=== PATIENT | female | born 2000 | race Caucasian/White ===

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

== ENCOUNTER 2022-08-17 21:35 | Emergency (ER) | payer BC, OTHER ==
[2022-08-17] MEDS ORDERED: oxyCODONE 5 MG TABLET PO STA (22:38)
[2022-08-17] MEDS ORDERED: ACETAMINOPHEN 325 MG TABLET PO STA ×2 (22:41)
[2022-08-17] MEDS ORDERED: BACITRACIN ZINC OINT 1 PACKET TOP STA (22:42)
--- NOTE | 2022-08-17 22:51 | ED Physician Documentation ---
History of Present Illness - Stated complaint Stated Complaint: HOT OIL BURN,LT ANKLE/LT RT HANDS - Chief complaint Chief Complaint: Burn - History obtained from History obtained from: Patient, Family (mother) - Additonal information Additional information: 22yF presents s/p hot oil burn to both palms and L ankle area while at work. endorses severe, sudden onset constant burning pain to ankle that is nonradiating. mild pain to BL palms a/w erythema. Review of Systems Skin: reports: Other (superficial blancas) PD PAST MEDICAL HISTORY - Past Medical History Past Medical History: Yes Psych: Depression, Anxiety - Past Surgical History Past Surgical History: No - Present Medications Home Medications: Ambulatory Orders Medication Instructions Recorded Confirmed Propranolol [Inderal] 10 - 30 mg PO DAILY PRN 08/17/22 08/17/22 Venlafaxine ER [Effexor ER] 37.5 mg PO DAILY 08/17/22 08/17/22 - Allergies Allergies/Adverse Reactions: Allergies Allergy/AdvReac Type Severity Reaction Status Date / Time No Known Drug Allergies Allergy Verified 08/17/22 21:52 - Social History Does the pt smoke?: No Smoking Status: Never smoker Does the pt drink ETOH?: No Does the pt have substance abuse?: No - Immunizations Immunizations are current?: Yes - POLST Patient has POLST: No PD ED PE NORMAL - Vitals Vital signs reviewed: Yes - General General: Alert and oriented X 3, Other (tearful appearing) - HEENT HEENT: Atraumatic, PERRL, EOMI - Derm Derm: Normal color, Warm and dry, Other (mild erythema to L leg just proximal to ankle in circumferential pattern c/w first degree (superficial) burn. good skin capillary refill. 2+ DP pulse. normal sensation. palms appear nonerythematous) - Extremities Extremities: Other (tender with light palpation of L ankle and palm areas. 2+ BL radial pulses. normal sensation, cap refill.) - Neuro Neuro: No motor deficit, No sensory deficit - Psych Psych: Other (anxious mood and affect) Results - Vitals Vitals: Vital Signs - 24 hr 08/17/22 08/17/22 21:47 23:03 Temperature 36.9 C 36.6 C Heart Rate 85 85 Respiratory 18 17 Rate Blood Pressure 130/78 108/64 O2 Saturation 99 98 Oxygen O2 Source Room air PD MEDICAL DECISION MAKING - ED course ED course: 22yF presents with superficial blancas to palms and L ankle. bacitracin ointment and dressing applied. analgesia provided. mother will drive home. symptom care discussed. plan to f/u with pcp. Departure - Departure Disposition: 01 Home, Self Care Clinical Impression: Superficial burn of ankle, Superficial burn of palm Condition: Good Instructions: ED Burn D 1st Comments: You were seen in the ED for burn to the hands and ankle. These are first degree blancas that should heal well. You can apply over the counter antibiotic ointment daily and leave uncovered after first 24 hours. Return to the ED for new or worsening symptoms or other concerns. Follow up with your primary care provider. Discharge Date/Time: 08/17/22 23:03
[2022-08-17 23:04] VITALS: BP 108/64
== END 2022-08-17 23:03 | disposition home or self-care (01) ==
LOC: ED 21:35
DX: T23.152A Burn of first degree of left palm, initial encounter (principal); T23.151A Burn of first degree of right palm, initial encounter; T25.112A Burn of first degree of left ankle, initial encounter; X10.2XXA Contact with fats and cooking oils, initial encounter; Y92.511 Restaurant or cafe as the place of occurrence of the external cause; Y99.0 Civilian activity done for income or pay
CPT/HCPCS: 16000; 99282; A9270; 1040M

== ENCOUNTER 2024-02-29 11:37 | Emergency (ER) | payer BC, OTHER ==
--- NOTE | 2024-02-29 12:01 | ED Physician Documentation ---
PD HPI CHEST PAIN - Stated complaint Stated Complaint: CHEST PX, SOA - Chief complaint Chief Complaint: Cardiac - History obtained from History obtained from: Patient - Additional information Additional information: 23-year-old woman with history of anxiety. She takes as needed propranolol on occasion and tapered off of venlafaxine with her last dose 2 days ago. She has no history of heart problems either personally nor in the family and no identifiable risk factors. She is been having intermittent sharp substernal chest pain for the last 2 weeks. Usually last about 10 minutes at a time. Had an episode today that started in druze and lasted for about 2 hours. She is short of breath with it. She notes that her Fitbit has showing some high heart rates up to 125 with moderate activity generally at work. Denies pedal edema, calf pain, OCP use, recent travel. PD PAST MEDICAL HISTORY - Past Medical History Past Medical History: Yes Psych: Depression, Anxiety - Past Surgical History Past Surgical History: No - Present Medications Home Medications: Ambulatory Orders Medication Instructions Recorded Confirmed Propranolol [Inderal] 10 - 30 mg PO DAILY PRN 08/17/22 02/29/24 - Allergies Allergies/Adverse Reactions: Allergies Allergy/AdvReac Type Severity Reaction Status Date / Time No Known Drug Allergies Allergy Verified 02/29/24 11:46 - Social History Does the pt smoke?: No Smoking Status: Never smoker Does the pt drink ETOH?: No Does the pt have substance abuse?: No - Immunizations Immunizations are current?: Yes - POLST Patient has POLST: No PD ED PE NORMAL - Vitals Vital signs reviewed: Yes - General General: Alert and oriented X 3, No acute distress - Neck Neck: Supple, no meningeal sign, No bony TTP - Cardiac Cardiac: RRR, No murmur, Other (Chest pain is reproducible with pressure on the anterior chest wall.) - Respiratory Respiratory: No respiratory distress, Clear bilaterally - Abdomen Abdomen: Normal bowel sounds, Soft, Non tender - Extremities Extremities: No edema, No calf tenderness / cord - Neuro Neuro: Alert and oriented X 3, Normal speech - Psych Psych: Normal mood, Normal affect Results - Vitals Vitals: Vital Signs - 24 hr 02/29/24 11:39 Temperature 36.5 C Heart Rate 56 L Respiratory 16 Rate Blood Pressure 125/76 O2 Saturation 99 Oxygen O2 Source Room air - EKG (time done) 1146 EKG releavant findings:: EKG personally interpreted by author of this note. Relevant findings are: Rate: Rate (enter#) (59) Rhythm: NSR Reader: Normal Intervals: Normal RI QRS: Normal Ischemia: Normal ST segments - Labs Labs: Laboratory Tests 02/29/24 02/29/24 02/29/24 12:07 12:07 12:07 WBC 5.9 RBC 4.52 Hgb 12.3 Hct 38.8 MCV 85.8 MCH 27.2 MCHC 31.7 L RDW 13.3 Plt Count 280 MPV 10.9 H Neut # (Auto) 3.1 Lymph # (Auto) 2.0 [place] # (Auto) 0.6 Eos # (Auto) 0.1 Baso # (Auto) 0.1 Absolute Nucleated RBC 0.00 Nucleated RBC % 0.0 D-Dimer < 200.0 L Sodium 138 Potassium 3.7 Chloride 105 Carbon Dioxide 28 Anion Gap 5.0 L BUN 13 Creatinine 0.9 Estimated GFR (MDRD) 79 L Glucose 97 Calcium 10.0 Total Bilirubin 0.6 AST 16 ALT 14 Alkaline Phosphatase 87 Troponin I High Sens < 2.3 L Total Protein 7.0 Albumin 4.7 Globulin 2.3 Albumin/Globulin Ratio 2.0 PD Medical Decision Making - ED course ED course: She presents with reproducible intermittent nonexertional chest pain. Her EKG is nonischemic. There was a report of tachycardia at home although this is not corroborated here but as such a D-dimer was done to rule out thromboembolic disease which was negative. Heart score 0. Departure - Departure Disposition: Home, Self Care Clinical Impression: Atypical chest pain Condition: Good Record reviewed to determine appropriate education?: Yes Instructions: ED Chest Pain Costochondritis Comments: Testing is ruled out heart attack and blood clots. Your chest x-ray looked okay. It is seeming like chest wall pain so I would encourage you to take a nonsteroidal anti-inflammatory drugs such as ibuprofen or Aleve per package instructions. Call your doctor to arrange a follow-up appointment, make the next available appointment. In the interim, return anytime if worse or if new symptoms develop. Forms: PCP List
[2024-02-29 12:13] LABS: BASOPHILS # (AUTO) 0.1 10^3/uL (0.0-0.1); EOSINOPHILS # (AUTO) 0.1 10^3/uL (0.0-0.7); EOSINOPHILS % (AUTO) 1.9 %; HCT - HEMATOCRIT 38.8 % (37.0-47.0); HGB - HEMOGLOBIN 12.3 g/dL (12.0-16.0); LYMPHOCYTES % (AUTO) 34.5 %; MEAN CORPUSCULAR HEMOGLOBIN 27.2 pg (27.0-31.0); MEAN CORPUSCULAR HGB CONC 31.7 g/dL (32.0-36.0); MEAN CORPUSCULAR VOLUME 85.8 fL (81.0-99.0); MEAN PLATELET VOLUME 10.9 fL (7.9-10.8); MONOCYTES # (AUTO) 0.6 10^3/uL (0.0-1.0); MONOCYTES % (AUTO) 9.7 %; NEUTROPHILS # (AUTO) 3.1 10^3/uL (1.5-6.6); NEUTROPHILS % (AUTO) 52.7 %; PLT - PLATELET COUNT 280 10^3/uL (130-450); RED BLOOD COUNT 4.52 10^6/uL (4.20-5.40); RED CELL DISTRIBUTION WIDTH 13.3 % (12.0-15.0); WHITE BLOOD COUNT 5.9 x10^3/uL (4.8-10.8)
[2024-02-29 12:25] LABS: ALBUMIN 4.7 g/dL (3.2-5.5); ALKALINE PHOSPHATASE 87 IU/L (42-121); ALT ALANINE AMINOTRANSFERASE 14 IU/L (10-60); AST ASPARTATE AMINOTRANSFERASE 16 IU/L (10-42); BILIRUBIN,TOTAL 0.6 mg/dL (0.2-1.0); BUN - BLOOD UREA NITROGEN 13 mg/dL (6-20); CARBON DIOXIDE - CO2 28 mmol/L (21-32); CHLORIDE 105 mmol/L (101-111); CREATININE 0.9 mg/dL (0.6-1.3); GFR - MDRD 79 (>89); GLUCOSE 97 mg/dL (74-104); POTASSIUM 3.7 mmol/L (3.5-4.5); SODIUM 138 mmol/L (135-145)
[2024-02-29 12:33] LABS: TROPONIN I HIGH SENSITIVITY < 2.3 ng/L (2.3-14.8)
[2024-02-29 12:53] VITALS: BP 109/68; O2SAT 100
--- NOTE | 2024-02-29 13:22 | XRAY Report ---
PROCEDURE: Chest 1V INDICATIONS: cp TECHNIQUE: One view of the chest was acquired. COMPARISON: None. FINDINGS: Surgical changes and devices: None. Lungs and pleura: No pleural effusions or pneumothorax. Lungs are clear. Mediastinum: Mediastinal contours appear normal. Heart size is normal. Bones and chest wall: No suspicious bony lesions. Overlying soft tissues appear unremarkable. IMPRESSION: No acute cardiopulmonary process. Reviewed by: Linnea Riggins MD, PhD on 02/29/2024 12:21 PM TIN Approved by: Linnea Riggins MD, PhD on 02/29/2024 12:21 PM TIN Station ID: [id number]
== END 2024-02-29 12:50 | disposition home or self-care (01) ==
LOC: ED 11:37
DX: R07.89 Other chest pain (principal)
CPT/HCPCS: 36415; 80053; 84484; 85025; 85379; 93005; 99284

== ENCOUNTER 2024-04-06 11:01 | Outpatient (CLI) | payer OTHER ==
[2024-04-06 11:26] LABS: CALCIUM 9.5 mg/dL (8.5-10.3); CREATININE 0.9 mg/dL (0.6-1.3); POTASSIUM 3.9 mmol/L (3.5-4.5)
[2024-04-06 11:43] LABS: THYROID STIMULATING HORMONE 1.73 uIU/mL (0.34-5.60)
[2024-04-06 11:47] LABS: PROLACTIN 10.84 ng/mL
[2024-04-06 11:53] LABS: ESTIMATED AVERAGE GLUCOSE 94 mg/dL (70-100); HEMOGLOBIN A1c% 4.9 % (4.27-6.07)
== END 2024-04-06 11:02 | disposition home or self-care (01) ==
LOC: LAB 11:01
PROVIDERS: ATTEND Family Medicine
DX: N92.6 Irregular menstruation, unspecified (principal)
CPT/HCPCS: 36415; 80048; 83036; 84146; 84403; 84443